=== PATIENT | male | born 1965 | race Hispanic/Latino ===

== ENCOUNTER 2023-12-04 06:24 | Day surgery (SDC) | payer MEDICARE, MEDICAID ==
[2023-12-04] MEDS ORDERED: PROPOFOL 40 ML ONE (06:34)
[2023-12-04] MEDS ORDERED: Lidocaine 1% PF 5 ML VIAL ONE (06:35)
== END 2023-12-04 09:45 ==
LOC: SDC 06:24
PROVIDERS: ATTEND Internal Medicine Gastroenterology
PROC: 0DBK8ZZ Excision of Ascending Colon, Via Natural or Artificial Opening Endoscopic (ICD-10-PCS; principal; 2023-12-04)
DX: Z12.11 Encounter for screening for malignant neoplasm of colon (principal); K63.5 Polyp of colon; K21.9 Gastro-esophageal reflux disease without esophagitis; E78.5 Hyperlipidemia, unspecified; F32.A Depression, unspecified; B35.1 Tinea unguium; Z79.899 Other long term (current) drug therapy; Z88.8 Allergy status to other drugs, medicaments and biological substances
CPT/HCPCS: 88305; J2704